=== PATIENT | female | born 2000 | race Hispanic/Latino ===

== ENCOUNTER 2018-05-10 02:17 | Emergency (ER) | payer BC, OTHER ==
[2018-05-10 03:30] LABS: APPEARANCE,URINE Clear (CLEAR); BILIRUBIN,URINE Negative (NEGATIVE); COLOR,URINE Dark Yellow (YELLOW); GLUCOSE, URINE (UA) Negative (NEGATIVE); KETONES,URINE Trace mg/dL (NEGATIVE); LEUKOCYTE ESTERASE ,URINE Negative (NEGATIVE); NITRATE,URINE Negative (NEGATIVE); OCCULT BLOOD,URINE Small (NEGATIVE); PH,URINE 5.5 (5.0-8.0); PROTEIN,URINE POS 1+ (NEGATIVE)
[2018-05-10 03:31] LABS: HCG,QUAL RESULT NEGATIVE (NEGATIVE)
[2018-05-10 03:42] LABS: RAPID GROUP A STREP NEGATIVE (NEGATIVE)
[2018-05-10] MEDS ORDERED: KETOROLAC TROMETHAMINE 15MG/ML ONE (03:45)
[2018-05-10 03:47] LABS: BASOPHILS % (AUTO) 0.3 % (0.0-5.0); EOSINOPHILS % (AUTO) 1.2 % (0.0-8.0); MEAN CORPUSCULAR HEMOGLOBIN 25.4 pg (27.0-33.0); MEAN CORPUSCULAR HGB CONC 32.1 g/dL (32.0-36.0); MEAN CORPUSCULAR VOLUME 79.2 fL (80-100); MONOCYTES % (AUTO) 9.7 % (3.0-13.0); NEUTROPHILS % (AUTO) 60.8 % (40.0-77.0); PLATELET COUNT (AUTO) 314 K/uL (130-400); RED BLOOD CELL COUNT(AUTO) 4.42 MIL/uL (4.00-5.50); RED CELL DISTRIBUTION WIDTH 17.8 % (11.0-15.5); WHITE BLOOD COUNT (AUTO) 10.2 K/uL (4.8-10.8)
[2018-05-10 03:50] LABS: BACTERIA,URINE Few /HPF (None Seen)
[2018-05-10 03:56] LABS: CREATININE 0.8 mg/dL (0.5-1.5); POTASSIUM 4.2 mmol/L (3.5-5.1)
[2018-05-10 04:00] LABS: ALBUMIN 3.5 g/dL (3.5-5.0); BILIRUBIN,TOTAL 0.1 mg/dL (0.2-1.0); TOTAL PROTEIN, SERUM 8.3 g/dL (6.0-8.3)
[2018-05-10] MEDS ORDERED: ONDANSETRON HCL 4 MG/2 ML VIAL ONE (04:46)
[2018-05-10] MEDS ORDERED: MORPHINE SULFATE 4 MG/1ML SYG ONE (04:47)
[2018-05-10] MEDS ORDERED: FAMOTIDINE/PF 20 MG/2 ML VIAL IV ONE (04:47)
[2018-05-10] MEDS ORDERED: SODIUM CHLORIDE 0.9% 500ML 500 ML IV ONE (04:47)
[2018-05-10] MEDS ORDERED: MORPHINE SULFATE 2 MG/ML 1ML SYG ONE (04:49)
== END 2018-05-10 06:53 | disposition home or self-care (01) ==
LOC: EDH 02:17
DX: R42 Dizziness and giddiness (principal); R11.2 Nausea with vomiting, unspecified; R10.9 Unspecified abdominal pain; Z72.0 Tobacco use
CPT/HCPCS: 36415; 76770; 80053; 81001; 81025; 83690; 85025; 87804 ×2; 87880; 96365; 96375; 99285; J1885; J2405; J3490; J7040; J2270